=== PATIENT | male | born 1990 | race Asian ===

== ENCOUNTER → 2016-04-06 | Day surgery (SDC) | payer OTHER ==
--- NOTE | 2016-04-09 14:57 | PATH ---
Cytology Non-Gynecological Report Patient Name: RAFIQ DAWN [facility]. Rec. #: [id number] /Age/Gender: 1990 (Age: 25) / M Account: [id number] Location: RADIOLOGY Taken: 04/06/2016 Received: 04/06/2016 Reported: 04/09/2016 Physicians: Desire Parson M.D. Specimen(s) Received LEFT THYROID FNA Clinical History Left thyroid nodule, 0.69 x 0.38 x 0.44 cm Final Diagnosis ----- Thyroid gland, left lobe, us guided fine needle aspiration biopsy: Evaluation is limited by low cellularity. ONLY scattered bland appearing follicular epithelial cellS PRESENT (see comment). Comment: The smears show only few clusters of bland-appearing follicular epithelial cells. The material is limited for a definitive interpretation. Imaging correlations and follow up are suggested. ___ Electronically Signed Chris Small M.D. Gross Description ----- Received are four air dried smears, four smears in 95% alcohol, and 20 cc of bloody fluid in formalin. Four diff-quik stained slides, four Pap stained slides and one cell block are made. ___
== END | disposition home or self-care (01) ==
LOC: JRADIR 08:37
PROVIDERS: ATTEND Internal Medicine Endocrinology, Diabetes & Metabolism
PROC: 0G9G3ZX Drainage of Left Thyroid Gland Lobe, Percutaneous Approach, Diagnostic (ICD-10-PCS; principal; 2016-04-06)
PROC: BG44ZZZ Ultrasonography of Thyroid Gland (ICD-10-PCS; 2016-04-06)
DX: E04.1 Nontoxic single thyroid nodule (principal)
CPT/HCPCS: 76942; 88173; 88305-TC